=== PATIENT | male | born 1945 | race Caucasian/White ===

== ENCOUNTER → 2024-03-08 14:07 | Outpatient (CLI) | payer MEDICARE, OTHER, SELFPAY ==
[2024-03-08 15:15] LABS: Add Manual Diff / Slide Review NO; Basophils Absolute Auto 0 /uL (0-100); Basophils Percent Auto 0.9 % (0-2); Eosinophils Absolute Auto 100 /uL (0-450); Eosinophils Percent Auto 3.3 % (2-4); Hematocrit 44.4 % (41-53); Hemoglobin 15.6 g/dL (13.5-17.5); Lymphocytes Absolute Auto 1500 /uL (1100-4500); Lymphocytes Percent Auto 32.4 % (25-40); Mean Corpuscular HGB Conc 35.2 % (30-36); Mean Corpuscular Hemoglobin 31.1 PG (26-34); Mean Corpuscular Volume 88.4 fL (80-100); Monocytes Absolute Auto 500 /uL (0-900); Monocytes Percent Auto 10.6 % (3-14); Neutrophils Absolute Auto 2400 /uL (1500-7000); Neutrophils Percent Auto 52.8 % (50-75); Platelet Count 194 X10^3/uL (150-400); Red Blood Cell Count 5.03 X10^6/uL (4.5-5.9); Red Cell Distribution Width 13.5 % (11.6-14.8); White Blood Cell Count 4.5 X10^3/uL (4.5-11.0)
[2024-03-08 15:40] LABS: Alanine Aminotransferase 22 IU/L (<50); Albumin 4.2 g/dL (3.5-5.0); Albumin Globulin Ratio 1.4 (1.0-2.8); Alkaline Phosphatase 71 U/L (38-126); Aspartate Aminotransferase 23 IU/L (17-59); BUN Creatinine Ratio 20.7 (6-22); Bilirubin Total 0.7 mg/dL (0.2-1.3); Blood Urea Nitrogen 23 mg/dL (9-20); Calcium 9.7 mg/dL (8.4-10.2); Carbon Dioxide 25 mmol/L (22-32); Chloride 103 mmol/L (98-107); Estimated Glomerular Filt Rate > 60 mL/min (>60); Globulin 3.1 g/dL (1.7-4.1); Glucose 100 mg/dL (80-110); HEMOLYSIS 28 (0-50); Potassium 4.1 mmol/L (3.4-5.1); Sodium 135 mmol/L (137-145); Total Protein 7.3 g/dL (6.3-8.2)
== END ==
PROVIDERS: PCP Family Medicine; Referring Provider Family Medicine; Visit Provider Family Medicine
DX: I10 Essential (primary) hypertension (principal)
CPT/HCPCS: 36415; 80053; 85025

== ENCOUNTER → 2024-05-10 11:02 | Outpatient (CLI) | payer MEDICARE, OTHER, SELFPAY ==
[2024-05-10 11:42] LABS: Appearance Urine UA CLEAR; Bilirubin Urine UA NEGATIVE (NEGATIVE); Color Urine UA YELLOW; Glucose Urine UA NEGATIVE (Negative); Ketones Urine UA NEGATIVE (NEGATIVE); Leukocyte Esterase Urine UA NEGATIVE (NEGATIVE); Nitrite Urine UA NEGATIVE (Negative); Occult Blood Urine UA 3+ (Negative); Protein Urine UA NEGATIVE (Negative); Specific Gravity Urine UA 1.015 (1.000-1.035); Urobilinogen Urine UA 0.2 E.U./dL (0.2)
[2024-05-10 11:44] LABS: Urine Volume 10mL (spun)
[2024-05-10 11:45] LABS: RBC Urine 5-10/HPF (0-5/HPF)
[2024-05-10 11:46] LABS: Bacteria Urine None Seen; Culture Indicated Urine Cult Not Indicated; Squamous Epithelial Cell Urine None Seen (0-5/HPF); WBC Urine None Seen (0-5/HPF)
== END ==
PROVIDERS: PCP Family Medicine; Referring Provider Family Medicine; Visit Provider Family Medicine
DX: R31.9 Hematuria, unspecified (principal)
CPT/HCPCS: 81001

== ENCOUNTER → 2024-05-11 17:04 | Outpatient (CLI) | payer MEDICARE, OTHER, SELFPAY ==
[2024-05-11 17:46] LABS: Hematocrit 43.2 % (41-53); Hemoglobin 14.9 g/dL (13.5-17.5)
[2024-05-11 18:11] LABS: HEMOLYSIS 21 (0-50); Iron 110 ug/dL (49-181)
[2024-05-11 18:25] LABS: Percent Iron Saturation 43 % (20-50); Total Iron Binding Capacity 254 ug/dL (261-462); Transferrin 221 mg/dL (206-381)
[2024-05-11 18:47] LABS: Prostate Specific Antigen Scrn 3.83 ng/mL (0.1-4.0)
== END ==
PROVIDERS: PCP Family Medicine; Referring Provider Physician Assistant; Visit Provider Physician Assistant
DX: Z12.5 Encounter for screening for malignant neoplasm of prostate (principal); R31.9 Hematuria, unspecified
CPT/HCPCS: 36415; 83540; 83550; 85014; 85018; G0103

== ENCOUNTER → 2024-06-15 13:57 | Outpatient (CLI) | payer MEDICARE, OTHER, SELFPAY ==
[2024-06-15 14:54] LABS: BUN Creatinine Ratio 16.2 (6-22); Blood Urea Nitrogen 19 mg/dL (9-20); Calcium 9.1 mg/dL (8.4-10.2); Carbon Dioxide 25 mmol/L (22-32); Chloride 107 mmol/L (98-107); Estimated Glomerular Filt Rate > 60 mL/min (>60); Glucose 106 mg/dL (80-110); HEMOLYSIS 38 (0-50); Potassium 4.1 mmol/L (3.4-5.1); Sodium 138 mmol/L (137-145)
== END ==
PROVIDERS: PCP Family Medicine; Referring Provider Urology; Visit Provider Urology
DX: R31.0 Gross hematuria (principal)
CPT/HCPCS: 36415; 80048

== ENCOUNTER → 2024-06-17 09:54 | Outpatient (CLI) | payer MEDICARE, OTHER, SELFPAY ==
--- NOTE | 2024-06-17 09:55 | DI.CT.S_ITS ---
PROCEDURE: CT ABDOMEN PELVIS WO/W CON INDICATIONS: Gross hematuria TECHNIQUE: After the administration of oral contrast, 5 mm thick sections acquired from the diaphragms to the iliac crests. After the administration of intravenous contrast, 5 mm thick sections acquired from the diaphragms to the symphysis. 5 mm thick coronal and sagittal reformats were acquired. For radiation dose reduction, the following was used: automated exposure control, adjustment of mA and/or kV according to patient size. COMPARISON: None. FINDINGS: Image quality: Diagnostic. Lower Chest: No significant findings. ABDOMEN: Liver: No solid mass. Gallbladder: Previously resected Biliary ducts: No biliary dilation. Pancreas: No ductal dilation. Spleen: Size is within normal limits. Adrenal Glands: No adrenal nodules. Kidneys and Ureters: No hydronephrosis. No solid mass. There is a 9 mm peripherally calcified cyst at the anterior cortex upper right kidney. A 2.1 cm high density presumed cyst is partially exophytic from the medial cortex of the left mid kidney. This shows no significant contrast enhancement. Stomach and Bowel: Normal colonic caliber, without significant wall thickening. Peritoneum: No abnormal intraperitoneal fluid. No free air. Ventral Wall: No significant ventral hernia. Abdominal Nodes: No retroperitoneal or mesenteric adenopathy by size criteria. Vessels: Aorta and inferior vena cava are normal in size. PELVIS: Pelvic Organs: Apparent TURP defect at the prostate gland, which is mildly lobulated at its upper aspect.. Bladder: No bladder wall thickening, accounting for underdistention. Pelvic Nodes: No enlarged lymph nodes. Miscellaneous: No inguinal hernias are seen. Bones: No aggressive osseous abnormality. IMPRESSION: A definite malignant-appearing mass or calculus as cause of gross hematuria is not identified. TURP defect noted at the mildly enlarged and lobulated upper prostate gland. Peripherally calcified 9 mm right renal cortical cyst, nonenhancing high density left renal cortical cyst. Targeted renal ultrasound is recommended to establish baseline assessment of these 2 structures and to confirm absence of complexity at the high density left renal cortical cyst. Prior cholecystectomy. Dictated by: Rishabh Painting M.D. on 06/19/2024 at 7:47 Approved by: Rishabh Painting M.D. on 06/19/2024 at 7:55
== END ==
PROVIDERS: PCP Family Medicine; Referring Provider Urology; Visit Provider Urology
DX: N28.1 Cyst of kidney, acquired (principal); R31.0 Gross hematuria; N40.0 Benign prostatic hyperplasia without lower urinary tract symptoms; Z90.49 Acquired absence of other specified parts of digestive tract
CPT/HCPCS: 74178; Q9967

== ENCOUNTER → 2024-07-01 11:26 | Outpatient (CLI) | payer MEDICARE, OTHER, SELFPAY ==
--- NOTE | 2024-07-01 11:27 | DI.RAD.S_ITS ---
PROCEDURE: XR KNEE RT 3V INDICATIONS: R knee pain TECHNIQUE: 3 views of the knee were acquired. COMPARISON: None. FINDINGS: Bones: Focal thickening and irregularity of the anterior patella cortex is likely due to old trauma . There are no significant osseous abnormalities Joints: The tibialfemoral and patellofemoral joints show mild degeneration. Soft tissues: Normal IMPRESSION: Mild patellofemoral and tibiofemoral degeneration Dictated by: Sunny Lino M.D. on 07/02/2024 at 10:41 Approved by: Sunny Lino M.D. on 07/02/2024 at 10:42
== END ==
LOC: RAD 11:27
PROVIDERS: PCP Family Medicine; Referring Provider Family Medicine; Visit Provider Family Medicine
DX: M25.561 Pain in right knee (principal)
CPT/HCPCS: 73562

== ENCOUNTER → 2024-07-28 09:05 | Outpatient (CLI) | payer MEDICARE, OTHER, SELFPAY | PROVIDERS: PCP Family Medicine; Visit Provider Urology | DX: R39.9 Unspecified symptoms and signs involving the genitourinary system (principal) | CPT/HCPCS: 87086 ==

== ENCOUNTER 2024-08-11 23:43 | Emergency (ER) | payer MEDICARE, OTHER, SELFPAY ==
[2024-08-11 23:50] VITALS: BP 142/76; PULSE 85; RESP 20; TEMP 36.4; O2SAT 97; BMI 30.4
--- NOTE | 2024-08-11 23:50 | EKG_ITS ---
[facility] [address] [place] [address] Test Date: 2024-08-11 Pat Name: Horace Dang Department: [facility] Room: Gender: Male Motion Study Analyst: DANO GURROLA : 1945 Requested By: Order Number: [id number] Reading MD: Vin Nelson Measurements Intervals [place] Rate: 86 P: MI: QRS: -4 QRSD: 112 T: 12 QT: 396 QTc: 473 Interpretive Statements Atrial fibrillation Poor tracing. Rate controlled. Electronically Signed On 08-12-2024 7:50:41 PST by Vin Nelson
[2024-08-11 23:59] VITALS: PULSE 93; RESP 22; O2SAT 97
[2024-08-12] VITALS (10 sets, daily range): BP systolic 142–176; BP diastolic 64–89; PULSE 79–111; RESP 18–22; O2SAT 91–98
[2024-08-12 00:23] LABS: Add Manual Diff / Slide Review NO; Basophils Absolute Auto 100 /uL (0-100); Basophils Percent Auto 0.6 % (0-2); Eosinophils Absolute Auto 0 /uL (0-450); Eosinophils Percent Auto 0.4 % (2-4); Hematocrit 44.3 % (41-53); Hemoglobin 15.4 g/dL (13.5-17.5); Lymphocytes Absolute Auto 900 /uL (1100-4500); Lymphocytes Percent Auto 9.9 % (25-40); Mean Corpuscular HGB Conc 34.9 % (30-36); Mean Corpuscular Hemoglobin 30.6 PG (26-34); Mean Corpuscular Volume 87.8 fL (80-100); Monocytes Absolute Auto 500 /uL (0-900); Monocytes Percent Auto 5.7 % (3-14); Neutrophils Absolute Auto 7900 /uL (1500-7000); Neutrophils Percent Auto 83.4 % (50-75); Platelet Count 181 X10^3/uL (150-400); Red Blood Cell Count 5.05 X10^6/uL (4.5-5.9); Red Cell Distribution Width 13.7 % (11.6-14.8); White Blood Cell Count 9.5 X10^3/uL (4.5-11.0)
[2024-08-12 00:32] LABS: Alanine Aminotransferase 32 IU/L (<50); Albumin 4.6 g/dL (3.5-5.0); Albumin Globulin Ratio 1.4 (1.0-2.8); Alkaline Phosphatase 91 U/L (38-126); Aspartate Aminotransferase 30 IU/L (17-59); BUN Creatinine Ratio 13.9 (6-22); Bilirubin Total 0.6 mg/dL (0.2-1.3); Blood Urea Nitrogen 21 mg/dL (9-20); Calcium 9.3 mg/dL (8.4-10.2); Carbon Dioxide 21 mmol/L (22-32); Chloride 106 mmol/L (98-107); Estimated Glomerular Filt Rate 47 mL/min (>60); Globulin 3.2 g/dL (1.7-4.1); Glucose 140 mg/dL (80-110); HEMOLYSIS 26 (0-50); Lipase 130 U/L (23-300); Potassium 3.9 mmol/L (3.4-5.1); Sodium 139 mmol/L (137-145); Total Protein 7.8 g/dL (6.3-8.2)
--- NOTE | 2024-08-12 00:43 | PC.NURSE ---
Pt placed on 2lnc att his time . O2 regularly dropping to 88-89% d/t ineffective shallow breathing secondary to pain. Pt states increased pain with deep breaths.
--- NOTE | 2024-08-12 00:47 | ED.ABDPAIN ---
HPI - Abdominal Pain General Chief Complaint: Abdominal Pain Stated Complaint: Stabbing pain LLQ, vomiting since 8:30p Time Seen by Provider: 08/11/24 23:49 Source: patient Mode of arrival: Ambulatory History of Present Illness HPI narrative: 78-year-old male with history of remote kidney stones, prior appendectomy, prior cholecystectomy, complains of nontraumatic left lower quadrant abdominal pain since 7:00 p.m. last night, improved with left lateral positioning, some nausea, emesis x4 without black or red color, last bowel movement day before yesterday unremarkable, no recent black or red stools. No injury trauma new activities. He has some urgency to urinate but does not end up having to urinate, no painful or frequent urination. 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 No known atrial fibrillation. No known chronic anticoagulation. Related Data Home Medications Medication Instructions Recorded Confirmed amlodipine 5 mg tablet 5 mg PO BID 03/08/24 07/08/24 cyclobenzaprine 5 mg tablet 5 mg PO BID PRN 03/08/24 07/08/24 gabapentin 300 mg capsule 300 mg PO TID PRN shingles 03/08/24 07/08/24 indomethacin 50 mg capsule 50 mg PO TID PRN gout attack 03/08/24 07/08/24 omeprazole 20 mg capsule,delayed 20 mg PO DAILY 03/08/24 07/08/24 release ondansetron 4 mg disintegrating 4 mg PO Q8H PRN 06/10/24 07/08/24 tablet Previous Rx's Medication Instructions Recorded colchicine 0.6 mg tablet 0.6 mg PO BID #20 tabs 03/10/24 prednisone 50 mg tablet 50 mg PO .COMPLEX #3 tabs 06/11/24 finasteride 5 mg tablet 5 mg PO DAILY #30 tabs 07/08/24 hydrocodone 5 mg-acetaminophen 325 1 tab PO BID #60 tabs 07/29/24 mg tablet hydrocodone 5 mg-acetaminophen 325 1 tab PO Q6H PRN pain #14 tabs 08/12/24 mg tablet ondansetron 4 mg disintegrating 4 mg PO Q6H PRN nausea and 08/12/24 tablet vomiting #7 tabs tamsulosin 0.4 mg capsule 0.4 mg PO DAILY #14 caps 08/12/24 Allergies Allergy/AdvReac Type Severity Reaction Status Date / Time iodine Allergy Severe Anaphylaxis Verified 07/08/24 15:25 ibuprofen Allergy Unknown nosebleed Verified 07/08/24 15:25 caffeine AdvReac Unknown sleepiness Verified 07/08/24 15:25 Patient History Medical History Right knee pain Secondhand smoke exposure Asymptomatic microscopic hematuria Gross hematuria Hx of renal calculi Wears glasses Allergies (~1970) Restless leg syndrome (~2017) Fractures (~1951) Chronic back pain (~2021) Mumps (~1953) Measles (~1952) Tinnitus (~1997) Hearing loss (~2013) Kidney stones (~2015) Lumbar spondylolysis GERD (gastroesophageal reflux disease) Gout (~2017) Hypertension (~1992) Surgical History History of transurethral resection of prostate Hx of vasectomy Hx of circumcision Status post urinary system surgery (~2017) Anesthesia History of cholecystectomy (~2012) History of appendectomy (~2002) History of right hip replacement (~2009) History of left shoulder replacement (~2014) Family History Father Cancer Hypertension Urinary tract bacterial infections Mother Stroke Grandfather Tuberculosis Grandmother Cancer Social History marital status: Smoking Status: Never smoker alcohol intake: never caffeine: No Type(s) of exercise: walking frequency: daily duration: > 90 minutes/day Smoking Status: Never smoker Exam Narrative Exam Narrative: GENERAL: Well-developed patient, in mild distress. HEAD: Atraumatic. Normocephalic. EYES: Pupils equal round and reactive. Extraocular motions intact. No scleral icterus. No injection or drainage. ENT: Nose without bleeding, purulent drainage. Throat without erythema, tonsillar hypertrophy or exudate. Airway patent. NECK: Trachea midline. Non tender CARDIOVASCULAR: Regular rate and rhythm without murmurs, gallops, or rubs. RESPIRATORY: Clear to auscultation. Breath sounds equal bilaterally. No wheezes, rales, or rhonchi. GASTROINTESTINAL: Abdomen soft, non-tender, nondistended. Mild tenderness left lower quadrant, no rigidity, no rebound tenderness. Bowel tones unremarkable without rushes or tinkles. EXTREMITIES: No edema or joint tenderness. BACK: Nontender without deformity or crepitance. No flank tenderness. NEURO: AOx3. Motor functions grossly nonfocal SKIN: No rash or erythema of visible areas Initial Vital Signs Initial Vital Signs: Vital Signs Temperature 97.6 F 08/11/24 23:50 Pulse Rate 85 08/11/24 23:50 Respiratory Rate 20 08/11/24 23:50 Blood Pressure 142/76 H 08/11/24 23:50 Pulse Oximetry 97 08/11/24 23:50 Oxygen Delivery Method Room Air 08/11/24 23:50 Course Orders Ordered: ED Orders 08/11/24 23:50 Complete Blood Count AUTO DIFF Stat Comprehensive Metabolic Panel Stat Lipase Stat EKG-12 Lead Stat 08/12/24 00:49 CT angio abdomen pelvis Stat 08/12/24 01:53 Urine Microscopic Stat Discontinued Medications Hydrocodone Bitart/Acetaminophen (Hydrocodone/Acet 5/325 Prepack) 1 bottle MISC DIRECTED ONE Stop: 08/12/24 03:18 Last Admin: 08/12/24 03:32 Dose: 1 bottle Documented By: JAEL Diphenhydramine HCl (Diphenhydramine 50 Mg/Ml Vial) 50 mg IV NOW ONE Stop: 08/12/24 00:53 Last Admin: 08/12/24 01:05 Dose: 50 mg Documented By: JOE Hydromorphone HCl (Hydromorphone 0.5 Mg Inj) 0.5 mg IV NOW ONE Stop: 08/12/24 01:34 Last Admin: 08/12/24 01:58 Dose: 0.5 mg Documented By: JOE Methylprednisolone (Methylprednisolone 125 Mg/2 Ml Vial) 125 mg IV NOW ONE Stop: 08/12/24 00:53 Last Admin: 08/12/24 01:05 Dose: 125 mg Documented By: JOE Tamsulosin HCl (Tamsulosin 0.4 Mg Capsule) 0.4 mg PO NOW ONE Stop: 08/12/24 03:18 Last Admin: 08/12/24 03:33 Dose: 0.4 mg Documented By: JAEL Vital Signs Vital signs: Vital Signs - 8 hr 08/11/24 23:50 08/11/24 23:59 08/12/24 00:00 Temperature 97.6 F Pulse Rate 85 93 H 79 Respiratory Rate 20 22 22 Blood Pressure 142/76 H Pulse Oximetry 97 97 97 Oxygen Delivery Method Room Air Room Air Room Air Oxygen Flow Rate 08/12/24 00:02 08/12/24 00:02 08/12/24 00:30 Temperature Pulse Rate 80 101 H Respiratory Rate 22 20 Blood Pressure 142/64 H Pulse Oximetry 98 94 Oxygen Delivery Method Room Air Room Air Oxygen Flow Rate 08/12/24 00:30 08/12/24 01:00 08/12/24 01:00 Temperature Pulse Rate 100 H Respiratory Rate 18 Blood Pressure 152/75 H 151/89 H Pulse Oximetry 92 Oxygen Delivery Method Oxygen Flow Rate 08/12/24 01:31 08/12/24 01:32 08/12/24 01:32 Temperature Pulse Rate 111 H 107 H Respiratory Rate 20 20 Blood Pressure 176/84 H Pulse Oximetry 95 93 Oxygen Delivery Method Nasal Cannula Nasal Cannula Oxygen Flow Rate 2 2 08/12/24 02:06 08/12/24 02:06 08/12/24 02:30 Temperature Pulse Rate 102 H Respiratory Rate Blood Pressure 151/73 H 144/72 H Pulse Oximetry 96 Oxygen Delivery Method Nasal Cannula Oxygen Flow Rate 2 08/12/24 02:30 08/12/24 03:00 08/12/24 03:00 Temperature Pulse Rate 97 H 96 H Respiratory Rate 18 18 Blood Pressure 148/75 H Pulse Oximetry 93 92 Oxygen Delivery Method Oxygen Flow Rate 08/12/24 03:23 08/12/24 03:23 Temperature Pulse Rate 99 H Respiratory Rate 18 Blood Pressure 157/77 H Pulse Oximetry 91 Oxygen Delivery Method Oxygen Flow Rate MDM - Abdominal Pain Lab Data Attestation: I reviewed the patient's lab results. Lab results narrative: White blood cell count 9500, hemoglobin 15.4, platelets adequate. BUN 21 with creatinine 1.5, glucose 140. Sodium 139, potassium 3.9, serum CO2 21. Liver functions and lipase normal. 08/12/24 00:10 08/12/24 00:10 Labs: Lab Results 08/12/24 08/12/24 Range/Units 00:10 01:53 WBC 9.5 (4.5-11.0) X10^3/uL RBC 5.05 (4.5-5.9) X10^6/uL Hgb 15.4 (13.5-17.5) g/dL Hct 44.3 (41-53) % MCV 87.8 (80-100) fL MCH 30.6 (26-34) PG MCHC 34.9 (30-36) % RDW 13.7 (11.6-14.8) % Plt Count 181 (150-400) X10^3/uL Neut % (Auto) 83.4 H (50-75) % Lymph % (Auto) 9.9 L (25-40) % [place] % (Auto) 5.7 (3-14) % Eos % (Auto) 0.4 L (2-4) % Baso % (Auto) 0.6 (0-2) % Neut # (Auto) 7900 H (7321-8159) /uL Lymph # (Auto) 900 L (6960-9512) /uL [place] # (Auto) 500 (0-900) /uL Eos # (Auto) 0 (0-450) /uL Baso # (Auto) 100 (0-100) /uL Sodium 139 (137-145) mmol/L Potassium 3.9 (3.4-5.1) mmol/L Chloride 106 (98-107) mmol/L Carbon Dioxide 21 L (22-32) mmol/L BUN 21 H (9-20) mg/dL Creatinine 1.51 H (0.66-1.25) mg/dL Estimated GFR 47 L (>60) mL/min BUN/Creatinine Ratio 13.9 (6-22) Glucose 140 H (80-110) mg/dL Calcium 9.3 (8.4-10.2) mg/dL Total Bilirubin 0.6 (0.2-1.3) mg/dL AST 30 (17-59) IU/L ALT 32 (<50) IU/L Alkaline Phosphatase 91 (38-126) U/L Total Protein 7.8 (6.3-8.2) g/dL Albumin 4.6 (3.5-5.0) g/dL Globulin 3.2 (1.7-4.1) g/dL Albumin/Globulin Ratio 1.4 (1.0-2.8) Lipase 130 (23-300) U/L Urine RBC 0-1/hpf (0-5/HPF) Urine WBC 1-5/hpf (0-5/HPF) Ur Squamous Epith Cells 0-1 /hpf (0-5/HPF) Urine Bacteria Occasional (0-1) (None) Ur Culture Indicated? Cult not indicated Vol Urine Centrifuged 10ml (spun) Point of care testing: Urine Dip Bedside Urine Glucose Negative Bedside Urine Bilirubin - Negative Bedside Urine Ketone + 15 Urine Specific [place] 1.010 Bedside Urine Occult Blood +/- Bedside Urine pH 7.0 Bedside Urine Protein - Negative Bedside Urine Urobilinogen - Negative Bedside Urine Nitrite - Negative Bedside Urine Leukocytes - Negative Esterase ECG Data Attestation: I personally reviewed and interpreted this ECG as follows: Interpretation: Atrial fibrillation with ventricular response rate 86. No obvious ST segment elevation or depression changes. QRS 112, QTC 473. MDM Narrative Medical decision making narrative: 78-year-old male with history of remote kidney stones, prior remote appendectomy and cholecystectomy, has had nontraumatic left lower quadrant abdominal discomfort, afebrile, sirs screen negative, some tenderness on left lower quadrant abdominal exam, no obvious ventral hernias. DDx consider ureteral stone, UTI, diverticulitis, colitis, hernia, volvulus, bowel obstruction, constipation, adenitis, musculoskeletal, other. Anticipate CT imaging, patient has contrast allergy but has been successfully premedicated in the past, IV Solu-Medrol, IV Benadryl. EKG shows atrial fibrillation which is apparently a new diagnosis, not on blood thinner medications. CT angiogram abdomen and pelvis with IV contrast ordered. EKG shows atrial fibrillation, this is a new diagnosis. Patient does not take blood thinner medications, no rapid ventricular response. Patient tolerated IV contrast well, CT was performed, results pending. CT abdomen and pelvis with IV contrast. Impressions: ?Moderate left sided hydroureteronephrosis to the level of the ureterovesical junction where there are 2 sub 5 mm stones. Perinephric edema. Bilateral renal lesions. Lesion in the right appears most consistent with a cyst. The exophytic lesion on the left is of increased density in indeterminate. Further characterization as clinically indicated with an MRI without and with contrast. At a minimum six-month follow up recommended. Mild atheromatous plaquing of the non aneurysmally aorta. Widely patent mesenteric and iliofemoral vessels. ? See tele radiology report. In the text the stones are measured 4 x 3 x 2 mm, and a adjacent smaller 3 mm stone. Copy of the report given to patient, with review of findings. Left ureteral stones both less than 5 mm, a pair of stones within the same ureter. Trial of expulsive therapy tamsulosin, analgesic hydrocodone. We will avoid NSAIDs, allergy to ibuprofen alleged. Follow up with Urology advised, contact information for clinic provided. Also advised follow up with Cardiology for atrial fibrillation, to consider anticoagulation in follow up although patient has had gross hematuria symptoms recent. Defer to Cardiology in follow up, given contact information for Dr. Ma. Discharge Plan Departure Patient Disposition: Home Clinical Impression: Abdominal pain, Atrial fibrillation Instructions: DI for Kidney Stones, DI for Atrial Fibrillation Activity Restrictions/Additional Instructions: Mr. Dang, you reported prior episode of gross hematuria for which she has seen your urologist Dr. Grullon and had cystoscopy showing prominent vessels by report, now with nontraumatic left lower quadrant abdominal discomfort with some tenderness on examination, no fever, unremarkable laboratory studies. CT scanning abdomen and pelvis showed presence of 2 stones within the left ureter, both were less than 5 mm, hopefully both will pass without Urology interventions. Pain medication anti-inflammatory medication and antinausea medication prescribed to help with passage of the stone. Tamsulosin might help expel the stone a little faster some urologists believe, prescription sent to your a prescription to take as well, discontinue if you feel dizziness on this medication as it can lower your blood pressure. Incidentally on EKG you were found to have atrial fibrillation, sometimes blood thinner medications are used to help reduce the risk of stroke, however they can cause bleeding, including gross hematuria which you have already recently been having. Consider consultation with Cardiology in follow up, contact information given with Dr. Ma, or you might pursue your own research and insights executive or a research and insights executive that works closely with your PCP. Take medications as directed. Drink plenty of fluids. Follow up with Urology. Follow up with Cardiology. Return earlier to this/nearest emergency department for any change worsening symptoms or any concerns prior. Thank you for allowing our team to evaluate you tonight. Prescriptions: New tamsulosin 0.4 mg capsule 0.4 mg PO DAILY Qty: 14 0RF ondansetron 4 mg tablet,disintegrating 4 mg PO Q6H PRN (Reason: nausea and vomiting) Qty: 7 0RF hydrocodone-acetaminophen 5-325 mg tablet 1 tab PO Q6H PRN (Reason: pain) Qty: 14 0RF No Action prednisone 50 mg tablet 50 mg PO .COMPLEX Qty: 3 0RF Rx Instructions: 50 mg orally 13hrs to procedure 1 tablet, 7hrs to procedure 1 tablet, 1hr to procedure 1 tablet with 50mg of Benadryl. hydrocodone-acetaminophen 5-325 mg tablet 1 tab PO BID Qty: 60 0RF amlodipine 5 mg tablet 5 mg PO BID omeprazole 20 mg capsule,delayed release(DR/EC) 20 mg PO DAILY indomethacin 50 mg capsule 50 mg PO TID PRN (Reason: gout attack) Rx Instructions: administer with food or milk cyclobenzaprine 5 mg tablet 5 mg PO BID PRN gabapentin 300 mg capsule 300 mg PO TID PRN (Reason: shingles ) colchicine 0.6 mg tablet 0.6 mg PO BID Qty: 20 1RF Rx Instructions: Use twice daily for 2-3 days as needed gout attack ondansetron 4 mg tablet,disintegrating 4 mg PO Q8H PRN finasteride 5 mg tablet 5 mg PO DAILY Qty: 30 12RF Referrals: Jose Ma MD [Physician] - Ck Andrade DO [Primary Care Provider] - Lamin Grullon MD [Physician] - Stand Alone Forms: Patient Portal/API/Survey
--- NOTE | 2024-08-12 00:49 | DI.CT.S_ITS ---
PROCEDURE: CT ANGIO ABDOMEN PELVIS INDICATIONS: abdominal pain, Afib on EKG, no thinners TECHNIQUE: After the administration of intravenous contrast, 2.5 mm sections acquired from the diaphragm to the iliac crests. 10 mm maximum intensity projection (MIP) coronal and sagittal reformats were then performed. For radiation dose reduction, the following was used: automated exposure control. [facility], CT, CT ABDOMEN PELVIS WO/W CON, 06/17/2024, 10:33. iagnostic FINDINGS: Image quality: Diagnostic Lower chest: Unremarkable lung bases. Mild atelectasis. Liver: Unremarkable Gallbladder and biliary system: Cholecystectomy clips, nondilated allowing for postsurgical state Pancreas: No ductal dilation Spleen: Nonenlarged Adrenals: No discrete nodules Kidneys: Delayed left nephrogram. A series of stones is seen at the left distal ureter, measuring up to 6 mm in craniocaudal dimension. There is moderate upstream hydronephrosis. Scarring in the right upper pole with calcifications. No right hydronephrosis. No solid renal mass is seen. Scattered cysts are present Vessels and lymph nodes: No abdominal aortic aneurysm. Atherosclerotic calcifications are present. No significant stenosis. No significant thromboembolism. No pathologic lymph nodes by size criteria. Bowel and peritoneum: Small hiatal hernia. No small bowel obstruction. No drainable ascites. Edematous fat stranding is seen around the left kidney and ureter. Body wall: Unremarkable. Small fat containing inguinal hernias. Pelvis: TURP defect. Heterogeneous prostate enhancement not well assessed on this study. Bones: Right hip arthroplasty, with surrounding metallic artifact. Degenerative changes. No aggressive appearing osseous finding. IMPRESSION: Moderate left hydronephrosis secondary to a series of calculi at the left distal ureter measuring up to 6 mm. Delayed nephrogram indicates obstructive uropathy. There are scattered renal cysts. Presumed hyperdense cyst is seen in the left medial kidney (hyperattenuating on prior imaging). This could be confirmed with ultrasound (MRI was suggested on the preliminary report). Other findings as above. Otherwise, no significant changes from the preliminary report. Dictated by: Russel Wilkes M.D. on 08/12/2024 at 8:03 Approved by: Russel Wilkes M.D. on 08/12/2024 at 8:10
[2024-08-12] MEDS: methylPREDNISolone 125 MG/2 ML VIAL IV (01:05)
[2024-08-12] MEDS: diphenhydrAMINE 50 MG/ML VIAL IV (01:05)
--- NOTE | 2024-08-12 01:50 | PC.NURSE ---
Pt taken to imaging via ED stretcher with electric meter technician.
[2024-08-12] MEDS: HYDROMORPHONE 0.5 MG INJ IV (01:58)
[2024-08-12 02:10] LABS: RBC Urine 0-1/HPF (0-5/HPF); Urine Volume 10mL (spun); WBC Urine 1-5/HPF (0-5/HPF)
[2024-08-12 02:11] LABS: Bacteria Urine Occasional (0-1); Culture Indicated Urine Cult Not Indicated; Squamous Epithelial Cell Urine 0-1 /HPF (0-5/HPF)
[2024-08-12] MEDS: HYDROCODONE/ACET 5/325 PREPACK 1 BOTTLE MISC (03:32)
[2024-08-12] MEDS: TAMSULOSIN 0.4 MG CAPSULE PO (03:33)
== END 2024-08-12 03:44 | disposition home or self-care (01) ==
PROVIDERS: Emergency Provider Emergency Medicine; PCP Family Medicine
DX: R10.32 Left lower quadrant pain (principal); I48.91 Unspecified atrial fibrillation; R11.2 Nausea with vomiting, unspecified
CPT/HCPCS: 36415; 74174; 80053; 81003; 81015; 83690; 85025; 93005; 96374; 96375; 99285; J1171; J1200; J2919; Q9967

== ENCOUNTER → 2024-08-16 15:08 | Outpatient (CLI) | payer MEDICARE, OTHER, SELFPAY ==
--- NOTE | 2024-08-16 15:10 | DI.RAD.S_ITS ---
PROCEDURE: XR KUB INDICATIONS: Left ureteral calculi TECHNIQUE: One view of the abdomen acquired. COMPARISON: None. FINDINGS: Stool gas pattern: Normal-no evidence of ileus or obstruction. No free intraperitoneal or extraperitoneal air. No gross evidence of ascites Soft tissues: A 3 millimeter calcification left true pelvis is likely a phlebolith , but could represent a stone. There is also a 5 millimeter calcification right true pelvis which is almost certainly a phlebolith. No definite calculi overlying either upper collecting system or proximal/mid ureters No soft tissue masses. Organs: No gross evidence for organomegaly. IMPRESSION: Pelvic calcification as described. Moderate left hip degeneration Dictated by: Sunny Lino M.D. on 08/17/2024 at 9:45 Approved by: Sunny Lino M.D. on 08/17/2024 at 9:47
== END ==
PROVIDERS: PCP Family Medicine; Referring Provider Urology; Visit Provider Urology
DX: N20.1 Calculus of ureter (principal); M16.12 Unilateral primary osteoarthritis, left hip; Z87.442 Personal history of urinary calculi
CPT/HCPCS: 74018

== ENCOUNTER → 2024-08-24 08:43 | Outpatient (CLI) | payer MEDICARE, OTHER, SELFPAY ==
--- NOTE | 2024-08-24 08:44 | DI.CT.S_ITS ---
PROCEDURE: CT PEL WO CON INDICATIONS: Follow-up distal left ureteral calculi TECHNIQUE: After the administration of oral contrast, 5 mm thick sections acquired from the iliac crests to the symphysis. 5 mm coronal and sagittal reformats were then performed. For radiation dose reduction, the following was used: automated exposure control, adjustment of mA and/or kV according to patient size. COMPARISON: [facility], CR, XR KUB, 08/16/2024, 15:09. [facility], CT, CT ANGIO ABDOMEN PELVIS, 08/12/2024, 0:55. FINDINGS: Image quality: Diagnostic. PELVIS: Peritoneum and Bowel: Bowel loops demonstrate normal wall thickness and caliber. No free fluid or air. Pelvic Organs: Prostatomegaly. Prior TURP. Bladder: Obstructing calculus at the left UVJ measuring 0.5 cm, (2/57). Not significantly changed. Left hydroureter. Normal wall thickness, accounting for underdistension. No perivesicular fat stranding. Pelvic Nodes: No enlarged lymph nodes. Miscellaneous: Tiny inguinal hernias. Bowel at the left inguinal hernia neck. Bones: No aggressive osseous abnormality. Right hip arthroplasty. IMPRESSION: 1. Obstructing calculus at the left UVJ measuring 0.5 cm. Left hydroureter. Findings not significantly changed. 2. No free fluid. 3. Prostatomegaly. Prior TURP. Dictated by: Higinio Ag M.D. on 08/24/2024 at 20:38 Approved by: Higinio Ag M.D. on 08/24/2024 at 20:48
== END ==
PROVIDERS: PCP Family Medicine; Referring Provider Urology; Visit Provider Urology
DX: N13.4 Hydroureter (principal); N20.1 Calculus of ureter; N40.0 Benign prostatic hyperplasia without lower urinary tract symptoms
CPT/HCPCS: 72192

== ENCOUNTER → 2024-09-08 10:49 | Outpatient (CLI) | payer MEDICARE, OTHER, SELFPAY ==
[2024-09-15 13:40] LABS: Ca oxalate dihydrate 30 % (.); Ca oxalate monohydr 70 % (.); Size 6x3 mm (.)
== END ==
PROVIDERS: PCP Family Medicine; Visit Provider Urology
DX: N20.1 Calculus of ureter (principal)
CPT/HCPCS: 82365

== ENCOUNTER → 2024-09-14 13:08 | Outpatient (CLI) | payer MEDICARE, OTHER, SELFPAY ==
--- NOTE | 2024-09-14 13:09 | DI.RAD.S_ITS ---
PROCEDURE: XR KUB INDICATIONS: Follow-up left ureteral calculi TECHNIQUE: One view of the abdomen acquired. COMPARISON: [facility], CR, XR KUB, 08/16/2024, 15:09. FINDINGS: Surgical changes and devices: Right upper quadrant surgical clips. Right hip hardware status post total arthroplasty. Bowel: Bowel gas pattern is normal. Soft tissues: No suspicious abdominal calcifications. Visualized solid organ contours appear normal in size. Bones: No suspicious bony lesions. IMPRESSION: No acute abnormality. Dictated by: Manuel Miller M.D. on 09/15/2024 at 1:49 Approved by: Manuel Miller M.D. on 09/15/2024 at 1:50
== END ==
PROVIDERS: PCP Family Medicine; Referring Provider Urology; Visit Provider Urology
DX: N20.1 Calculus of ureter (principal)
CPT/HCPCS: 74018

== ENCOUNTER → 2024-09-17 09:28 | Outpatient (CLI) | payer MEDICARE, OTHER, SELFPAY ==
[2024-09-17 11:20] LABS: Calcium 9.6 mg/dL (8.4-10.2); Phosphorous 2.9 mg/dL (2.3-3.7); Uric Acid 7.1 mg/dL (3.5-8.5)
[2024-09-18 10:36] LABS: Calcium 9.2 mg/dL (8.6-10.2); Parathyroid Hormone, Intact 47 pg/mL (15-65)
== END ==
PROVIDERS: PCP Family Medicine; Referring Provider Urology; Visit Provider Urology
DX: N20.1 Calculus of ureter (principal)
CPT/HCPCS: 36415; 82310; 82365; 83970; 84100; 84550

== ENCOUNTER → 2024-09-27 16:23 | Outpatient (CLI) | payer MEDICARE, OTHER, SELFPAY ==
--- NOTE | 2024-09-27 16:26 | DI.RAD.S_ITS ---
PROCEDURE: XR HIP W PEL IF DONE RT 2V INDICATIONS: Rt hip pain s/p fall, h/o total rt hip replacement TECHNIQUE: 2 view(s) of the hip acquired. COMPARISON: None. FINDINGS: Bones: Patient is status post right hip arthroplasty, with hardware components in expected positions. The hip joint appears congruent. The visualized bony structures appear intact. Soft tissues: No suspicious soft tissue densities. IMPRESSION: Expected post-operative appearance of a hip arthroplasty. No evidence of acute osseous abnormality or hardware complication. Dictated by: Manuel Miller M.D. on 09/28/2024 at 2:35 Approved by: Manuel Miller M.D. on 09/28/2024 at 2:36
== END ==
PROVIDERS: PCP Family Medicine; Referring Provider Family Medicine; Visit Provider Family Medicine
DX: M25.551 Pain in right hip (principal); Z96.641 Presence of right artificial hip joint
CPT/HCPCS: 73502

== ENCOUNTER → 2024-10-15 09:17 | Outpatient (CLI) | payer MEDICARE, OTHER, SELFPAY ==
--- NOTE | 2024-10-15 09:19 | DI.ECHO.S_ITS ---
[place] [facility] : : [address] : : [place] : : [id number] : : Phone: [phone] Echocardiogram Report + + :Name: VINNY MANCIA Study Date: 10/15/2024 Height: 70 in : :[facility] ReadingLocation: Weight: 206 lb : : Gender: Male BSA: 2.1 m2 : :: 1945 Age: 79 yrs BP: 137/75 mmHg: :Reason For Study: CONTRACTIONS : :Ordering Physician: JEREMIAH MA Performed By: Mika Waters : :Referring: JEREMIAH MA : + + Interpretation Summary 1. The left ventricular contractility is normal. Estimate ejection fraction is greater than 55% with no segmental wall motion abnormalities. No LVH. No diastolic dysfunction. 2. The right ventricular contractility is normal. 3. All cardiac chambers are of normal size. 4. Trace to mild aortic insufficiency. 5. No obvious intracardiac shunts. 6. No obvious intracardiac masses nor thrombi. 7. No hemodynamically significant pericardial effusion. 8. Low right-sided filling pressures. Conclusion: Normal biventricular function with no significant valvular abnormalities. Procedure: A two-dimensional transthoracic echocardiogram with color flow and Doppler was performed. The study quality was technically adequate. There is no prior echocardiogram noted for this patient. Left Ventricle: The left ventricle is normal in size and wall thickness. The ejection fraction is estimated to be 55-60%. Right Ventricle: The right ventricle is normal in size and function. Atria: The left atrial size is normal. Right atrial size is normal. There is no Doppler evidence for an interatrial shunt. Mitral Valve: The mitral valve leaflets appear mildly thickened, but open well. There is trace mitral regurgitation. Aortic Valve: The aortic valve is trileaflet. There is mild aortic valve sclerosis. There is no aortic valve stenosis. There is mild aortic regurgitation. Tricuspid Valve: The tricuspid valve leaflets are thin and pliable. There is trace tricuspid regurgitation. The right ventricular systolic pressure is estimated to be at least 25 mmHg based on an estimated right atrial pressure of 3 mm Hg. Pulmonic Valve: The pulmonic valve is not well seen, but is grossly normal. There is trace pulmonic regurgitation. Great Vessels: The aortic root is normal size. The dimensions of the ascending aorta are normal. The IVC is of normal diameter and collapses greater than 50% with a sniff. This suggests a low right atrial pressure of 3 mm Hg. Pericardium/ Pleura There is no pericardial effusion. There is no pleural effusion. MMode/2D Measurements & Calculations LVIDd: 5.1 cm LVOT diam: 2.1 cm LVIDs: 3.7 cm Ao root diam: 3.5 cm FS: 27.1 % asc Aorta Diam: 3.4 cm EPSS: 0.42 cm IVSd: 1.0 cm LVPWd: 1.0 cm LV schwartz. diameter/BSA (cm/m^2): 2.4 LV sys. diameter/BSA (cm/m^2): 1.8 LA A2 area: 20.7 cm2 RA long axis: 4.9 cm LA A4 area: 20.3 cm2 RA area: 15.6 cm2 LA length (vol): 6.0 cm RA vol: 42.2 ml LA vol: 59.2 ml RA : 20.0 ml/m2 LA vol index: 28.0 ml/m2 IVC diam: 1.6 cm RVD1 (basal): 3.7 cm TAPSE: 2.0 cm Doppler Measurements & Calculations Ao V2 max: 180.7 cm/sec LVOT Max Yonny: 98.8 cm/sec Ao V2 mean: 116.4 cm/sec LV V1 max P.9 mmHg Ao max P.1 mmHg LV V1 VTI: 26.7 cm Ao mean P.2 mmHg JAVED(I,D): 2.8 cm2 Ao V2 VTI: 34.1 cm JAVED(V,D): 2.0 cm2 sev ratio: 0.78 JAVED indexed to BSA (cm^2/m^2): 1.3 MV E max yonny: 61.2 cm/sec TR max yonny: 236.6 cm/sec MV A max yonny: 63.3 cm/sec TR max P.4 mmHg MV E/A: 0.97 PA V2 max: 137.1 cm/sec Med Peak E' Yonny: 5.0 cm/sec PA V2 mean: 84.7 cm/sec E/E' med: 12.3 PA mean P.4 mmHg Lat Peak E' Yonny: 6.3 cm/sec PA pr(Accel): 63.6 mmHg E/E' lat: 9.8 E/e' average: 11.0 MV dec time: 0.31 sec SV(LVOT): 96.3 ml Reading Physician:NADIRA
== END ==
LOC: ECHO 09:18
PROVIDERS: PCP Family Medicine; Referring Provider Internal Medicine; Visit Provider Internal Medicine
DX: I35.1 Nonrheumatic aortic (valve) insufficiency (principal); I49.1 Atrial premature depolarization
CPT/HCPCS: 93306

== ENCOUNTER → 2024-10-26 16:09 | Outpatient (CLI) | payer MEDICARE, OTHER, SELFPAY ==
--- NOTE | 2024-10-26 16:12 | DI.RAD.S_ITS ---
PROCEDURE: XR KNEE RT 3V INDICATIONS: Persistent right knee pain TECHNIQUE: 3 views of the knee were acquired. COMPARISON: [facility], , XR KNEE RT 3V, 07/01/2024, 11:28. FINDINGS: Bones: Cortical irregularity of the anterior patellar surface likely reflects old trauma Joints: The tibialfemoral and patellofemoral joints show mild degeneration-unchanged Soft tissues: Normal IMPRESSION: Mild degeneration Dictated by: Sunny Lino M.D. on 10/27/2024 at 10:22 Approved by: Sunny Lino M.D. on 10/27/2024 at 10:23
== END ==
PROVIDERS: PCP Family Medicine; Referring Provider Family Medicine; Visit Provider Family Medicine
DX: M25.561 Pain in right knee (principal); M19.071 Primary osteoarthritis, right ankle and foot
CPT/HCPCS: 73562

== ENCOUNTER → 2024-10-29 09:59 | Outpatient (CLI) | payer MEDICARE, OTHER, SELFPAY ==
--- NOTE | 2024-10-29 10:00 | DI.CT.S_ITS ---
PROCEDURE: CT PEL WO CON INDICATIONS: Follow-up distal left ureteral calculus TECHNIQUE: After the administration of oral contrast, 5 mm thick sections acquired from the iliac crests to the symphysis. 5 mm coronal and sagittal reformats were then performed. For radiation dose reduction, the following was used: automated exposure control, adjustment of mA and/or kV according to patient size. COMPARISON: [facility], CT, CT PEL WO CON, 08/24/2024, 8:50. FINDINGS: Image quality: Diagnostic. PELVIS: Peritoneum and Bowel: Bowel loops demonstrate normal wall thickness and caliber. No free fluid or air. Fecal debris within the small bowel. Appendix not identified. No significant diverticular disease. Pelvic Organs: No pelvic mass. Bladder: Normal wall thickness, accounting for underdistension. No perivesicular fat stranding. Resolved left UVJ stone. Pelvic Nodes: No enlarged lymph nodes. Miscellaneous: small right direct and left indirect inguinal hernias containing fat. Bones: No aggressive osseous abnormality. Right total hip arthroplasty. IMPRESSION: Interval passage of the left UVJ stone. No bladder stone appreciated. Fecal debris within the small-bowel, usually indicating small intestinal bacterial overgrowth versus slow transit. Ancillary findings as above. Dictated by: Eduardo Moran M.D. on 10/29/2024 at 16:04 Approved by: Eduardo Moran M.D. on 10/29/2024 at 16:06
== END ==
PROVIDERS: PCP Family Medicine; Referring Provider Urology; Visit Provider Urology
DX: N20.1 Calculus of ureter (principal); K40.20 Bilateral inguinal hernia, without obstruction or gangrene, not specified as recurrent; Z96.641 Presence of right artificial hip joint
CPT/HCPCS: 72192

== ENCOUNTER → 2024-11-17 07:20 | Outpatient (CLI) | payer MEDICARE, OTHER, SELFPAY ==
[2024-11-17 08:24] LABS: Calcium 9.6 mg/dL (8.4-10.2); Phosphorous 3.6 mg/dL (2.3-3.7); Uric Acid 5.4 mg/dL (3.5-8.5)
== END ==
PROVIDERS: PCP Family Medicine; Referring Provider Urology; Visit Provider Urology
DX: N20.1 Calculus of ureter (principal)
CPT/HCPCS: 36415; 82310; 84100; 84550

== ENCOUNTER 2024-12-11 17:13 | Emergency (ER) | payer MEDICARE, OTHER, SELFPAY ==
[2024-12-11] VITALS (7 sets, daily range): BP systolic 144–157; BP diastolic 70–79; PULSE 63–90; RESP 16–18; TEMP 36.6; O2SAT 87–96; BMI 39.9
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
--- NOTE | 2024-12-11 22:18 | DI.CT.S_ITS ---
PROCEDURE: CT LUMBAR SPINE WO CON INDICATIONS: right LBP severe, regular lifting rock buckets TECHNIQUE: Noncontrast 3 mm thick sections acquired from the T12 level to the sacrum. Sagittal and coronal reformats were constructed. For radiation dose reduction, the following was used: automated exposure control. COMPARISON: [facility], CT, CT ANGIO ABDOMEN PELVIS, 08/12/2024, 0:55. FINDINGS: Image quality: Excellent. Bones: There is normal bony alignment. No acute vertebral body compression fractures. No suspicious lytic or blastic bony lesions. No pars defects. T12-L1: Moderate disc height loss. L1-L2: Moderate disc height loss, disc osteophyte complex causing moderate spinal canal narrowing. L2-L3: Broad-based disc bulge, ligamentum flavum hypertrophy causing moderate spinal canal narrowing. Moderate left neural foraminal narrowing. L3-L4: Disc osteophyte complex and broad-based disc bulge with facet hypertrophy and ligamentum flavum hypertrophy causing moderate to severe spinal canal narrowing. L4-L5: Disc osteophyte complex and broad-based disc bulge with facet hypertrophy and ligamentum flavum hypertrophy causing moderate to severe spinal canal narrowing. L5-S1: Disc osteophyte complex, facet hypertrophy. Mild spinal canal narrowing. Moderate bilateral neural foraminal narrowing. Soft tissues: No retroperitoneal masses or hematomas. Visualized aorta is normal in caliber. Left renal lesion along the medial, inferior margin of the left kidney measuring 2.0 cm. This was previously characterized as a hemorrhagic cyst. IMPRESSION: No displaced fracture or traumatic subluxation. Multilevel degenerative disc disease and facet arthrosis. Of note, there is moderate to moderate to severe spinal canal narrowing from L2 through L5. Dictated by: Eduardo Moran M.D. on 12/11/2024 at 22:46 Approved by: Eduardo Moran M.D. on 12/11/2024 at 22:50
[2024-12-11] MEDS: ONDANSETRON 4 MG/2 ML INJ IV (22:50)
[2024-12-11] MEDS: DEXAMETHASONE 10 MG/ML VIAL IV (22:51)
[2024-12-12 00:04] VITALS: BP 144/70; PULSE 67; RESP 18; O2SAT 93
== END 2024-12-12 00:06 | disposition home or self-care (01) ==
PROVIDERS: Emergency Provider Emergency Medicine; PCP Family Medicine
DX: S39.012A Strain of muscle, fascia and tendon of lower back, initial encounter (principal); M51.369 Other intervertebral disc degeneration, lumbar region without mention of lumbar back pain or lower extremity pain; X50.0XXA Overexertion from strenuous movement or load, initial encounter
CPT/HCPCS: 72131; 96374; 96375; 99284; J1100; J1171; J2405

== ENCOUNTER → 2024-12-29 13:25 | Outpatient (CLI) | payer MEDICARE, OTHER, SELFPAY ==
--- NOTE | 2024-12-29 13:26 | DI.MRI.S_ITS ---
PROCEDURE: MR LUMBAR SPINE WO CON INDICATIONS: screening TECHNIQUE: Noncontrast sagittal T1 spin echo and T2 fast echo, sagittal STIR, and T2 fast spin echo through the lumbar spine. In cases with scoliosis, additional coronal T2 fast spin echo may be performed. COMPARISON: CT of the lumbar spine 12/11/2024. FINDINGS: Image quality: Excellent. Alignment and Curvature: There is normal bony alignment. Trace retrolisthesis of L5 on S1. Bone Marrow: Marrow is of normal overall signal. No acute vertebral body compression fractures. Spinal Cord: Conus medullaris terminates at the L1 level. Visualized cord demonstrates normal signal and size. Paraspinous Soft Tissues: No paravertebral masses. The combination of disc bulging with endplate spurring and facet arthropathy result in the following: T12-L1: Shallow disc bulge without stenosis. L1-L2: Shallow disc bulge with moderate bilateral foraminal stenosis. L2-L3: Moderate central canal stenosis with severe right and moderate left foraminal stenosis. L3-L4: Severe central canal stenosis with mild right and moderate left foraminal stenosis. L4-L5: Severe central canal stenosis with mild right and moderate left foraminal stenosis. L5-S1: Prominent central osteophyte with disc bulging results in mild central canal stenosis with severe bilateral foraminal stenosis. IMPRESSION: Multilevel degenerative disc disease results and varying degrees of central canal and foraminal stenosis with similar findings by recent CT imaging of the lumbar spine. Dictated by: Fabby Nichols M.D. on 12/29/2024 at 15:04 Approved by: Fabby Nichols M.D. on 12/29/2024 at 15:09
== END ==
LOC: MRI 13:26
PROVIDERS: PCP Family Medicine; Referring Provider Family Medicine; Visit Provider Family Medicine
DX: M47.26 Other spondylosis with radiculopathy, lumbar region (principal); M51.16 Intervertebral disc disorders with radiculopathy, lumbar region; M51.17 Intervertebral disc disorders with radiculopathy, lumbosacral region; M48.061 Spinal stenosis, lumbar region without neurogenic claudication; M48.07 Spinal stenosis, lumbosacral region
CPT/HCPCS: 72148

== ENCOUNTER → 2025-05-16 14:52 | Outpatient (CLI) | payer MEDICARE, OTHER, SELFPAY ==
--- NOTE | 2025-05-16 14:54 | DI.CT.S_ITS ---
PROCEDURE: CT HEAD/BRAIN WO CON INDICATIONS: frequent headaches. History of meningioma TECHNIQUE: Noncontrast 4.5 mm thick angled axial sections acquired from the foramen magnum to the vertex, with coronal and sagittal reformats. For radiation dose reduction, the following was used: automated exposure control, adjustment of mA and/or kV according to patient size. COMPARISON: None. FINDINGS: CSF spaces: Basal cisterns are patent. No extra-axial fluid collections. Ventricles are normal in size and shape. Brain: 1.0 x 1.2 cm hyperdense extra-axial mass lesion associated with the left sphenoid planum. Surrounding left frontal cerebral edema or gliosis does results in minimal mass effect. Otherwise, no intracranial hemorrhage or extra-axial fluid collections. Age- appropriate atrophy and white matter chronic ischemic change Skull and face: Calvarium and visualized facial bones are intact, without suspicious lesions. Sinuses: Visualized sinuses and mastoids are clear. IMPRESSION: Hyperdense left frontal extra-axial mass lesion associated with left frontal cerebral edema. While this could represent an atypical meningioma given history, follow- up MRI brain with contrast for further evaluation is recommended Approved by: Fawad Daugherty M.D. on 05/16/2025 at 15:45
== END ==
PROVIDERS: PCP Family Medicine; Referring Provider Family Medicine; Visit Provider Family Medicine
DX: G93.89 Other specified disorders of brain (principal); R51.9 Headache, unspecified
CPT/HCPCS: 70450